=== PATIENT | female | born 1965 | race Caucasian/White ===

== ENCOUNTER 2018-08-17 10:25 | Emergency (ER) | payer MEDICAID ==
[2018-08-17 11:04] LABS: URINE BLOOD (Dip) POC Negative (NEGATIVE); URINE GLUCOSE (Dip) POC Negative (NEGATIVE); URINE KETONES (Dip) POC Negative (NEGATIVE); URINE LEUKOCYTE EST (Dip) POC Trace (NEGATIVE); URINE NITRITE (Dip) POC Negative (NEGATIVE); URINE TOTAL PROTEIN POC Negative (NEGATIVE)
== END 2018-08-17 11:47 | disposition home or self-care (01) ==
LOC: FTE 10:25
DX: R42 Dizziness and giddiness (principal)
CPT/HCPCS: 70450; 81003; 81025; 99284-25